=== PATIENT | female | born 1960 | race Caucasian/White ===

== ENCOUNTER 2020-01-13 08:35 | Observation (INO) | payer OTHER ==
--- NOTE | 2020-01-13 20:21 | History and Physical Report ---
History of Present Illness Chief complaint: She passed out History of present illness: 59 YO Female with unobtainable past medical history presents to ED for evaluation. Patient is lethargic the time of my evaluation is unable to provide history. Patient history as per ED staff. Patient staff reports that patient e xperienced a syncopal episode today and was subsequently transported to [facility] for further care and evaluation. Patient seen and evaluated in the emergency department. Lab and imaging studies reviewed. Patient found to have symptoms consistent with metabolic encephalopathy, as well as syncope and collapse. Patient placed in observation status and admitted to medical floor and placed on remote telemetry monitoring. No reports of fever, chills, chest pain, palpitation, productive cough, skin rash, recent ill contacts, prolonged travel/immobility, unilateral leg swelling, calf pain, recent ill contacts, or known exposure to COVID-19. No medication listed at time of admission for reconciliation. No prior admission for review. Advanced care planning conducted in ED. Past History Past Medical History: other (Unable to obtain) Past Surgical History: No surgical history, Other (Reviewed) Social history: Family history: no significant family history (Reviewed) Medications and Allergies Allergies Allergy/AdvReac Type Severity Reaction Status Date / Time No Known Allergies Allergy Verified 01/13/20 21:27 Review of Systems ROS unobtainable: due to mental status Exam - Constitutional General appearance: Present: mild distress - EENT Eyes: Present: PERRL ENT: hearing intact, clear oral mucosa - Neck Neck: Present: supple, normal ROM - Respiratory Respiratory effort: normal Respiratory: bilateral: CTA - Cardiovascular Heart Sounds: Present: S1 & S2. Absent: rub, click - Extremities Extremities: pulses symmetrical, No edema Peripheral Pulses: within normal limits - Abdominal General gastrointestinal: Present: soft, non-tender, non-distended, normal bowel sounds Female genitourinary: Present: normal - Integumentary Integumentary: Present: clear, warm, dry - Musculoskeletal Musculoskeletal: gait normal, strength equal bilaterally - Psychiatric Psychiatric: appropriate mood/affect, intact judgment & insight - Neurologic Neurologic: CNII-XII intact, moves all extremities Assessment and Plan - Patient Problems (1) Metabolic encephalopathy Current Visit: Yes Status: Acute Plan to address problem: CT head, neuro check, seizure precaution, aspiration precautions, fall precautions, BMP, supportive care. (2) Syncope and collapse Current Visit: Yes Status: Acute Plan to address problem: Neuro check, seizure precautions, supportive care. Remote telemetry monitoring. (3) DVT prophylaxis Current Visit: Yes Status: Acute Plan to address problem: SCD to bilateral lower extremities while in bed
[2020-01-13] MEDS ORDERED: ACETAMINOPHEN 325 MG TAB PO PRN (20:59)
[2020-01-13] MEDS ORDERED: ONDANSETRON 4 MG/2 ML INJ IV PRN (20:59)
[2020-01-14 06:06] LABS: Alanine Aminotransferase 13 units/L (7-56); Albumin 4.1 g/dL (3.9-5); Blood Urea Nitrogen 16 mg/dL (7-17); Calcium 9.2 mg/dL (8.4-10.2); Hemolysis Index 4
[2020-01-14 06:11] LABS: BUN/Creatinine Ratio 27
[2020-01-14 11:25] LABS: Basophils # (Auto) 0.1 K/mm3 (0.0-0.1); Eosinophils # (Auto) 0.1 K/mm3 (0.0-0.4); Hematocrit 44.8 % (30.3-42.9); Hemoglobin 14.9 gm/dl (10.1-14.3); Lymphocytes # (Auto) 1.2 K/mm3 (1.2-5.4); Mean Corpuscular HGB Conc 33 % (30-34); Mean Corpuscular Volume 97 fl (79-97); Monocytes # (Auto) 0.3 K/mm3 (0.0-0.8); Monocytes % (Auto) 6.3 % (0.0-7.3); Platelet Count 227 K/mm3 (140-440); Red Blood Count 4.63 M/mm3 (3.65-5.03); Red Cell Distribution Width 14.1 % (13.2-15.2)
[2020-01-14] MEDS ORDERED: FLU VACC QUAD 2020-2021 (6 months +)/PF 60 0.5 ML SYRINGE IM ONE (12:00)
--- NOTE | 2020-01-14 12:28 | Cat Scan Report ---
CT HEAD WITHOUT CONTRAST INDICATION / CLINICAL INFORMATION: syncope. TECHNIQUE: Axial imaging performed from the skull apex through the skull base without the use of cont rast. Sagittal and coronal reformatted images. All CT scans at this location are performed using CT dose reduction for ALARA by means of automated exposure control. COMPARISON: 01/13/2020 FINDINGS: CEREBRAL PARENCHYMA: No significant abnormality. No acute territorial infarct. HEMORRHAGE: None. EXTRA-AXIAL SPACES: Normal in size and morphology for the patient's age. VENTRICULAR SYSTEM: Normal in size and morphology for the patient's age. MIDLINE SHIFT OR HERNIATION: None. CEREBELLUM / BRAINSTEM: No significant abnormality. CALVARIUM: No significant abnormality. ORBITS: Normal as visualized. PARANASAL SINUSES / MASTOID AIR CELLS: Normal as visualized. SOFT TISSUES of HEAD: No significant abnormality. ADDITIONAL FINDINGS: None. IMPRESSION: Cranial CT scan within normal limits. No acute change since yesterday's exam. Signer Name: Joey Vera Jr, MD Signed: 01/14/2020 12:23 PM Workstation Name: [id number]
--- NOTE | 2020-01-14 14:02 | Vascular Lab Report ---
"DUPLEX DOPPLER ULTRASOUND CAROTID, BILATERAL INDICATION: syncope. COMPARISON: None available. FINDINGS: RIGHT CAROTID: No significant atherosclerotic plaque. CCA velocity: 75 cm/sec. ICA peak systolic velocity: 105 cm/sec. ICA/CCA PSV Ratio: 1.4. Right Vertebral Artery: Antegrade flow. LEFT CAROTID: No significant atherosclerotic plaque. CCA velocity: 103 cm/sec. ICA peak systolic velocity: 99 cm/sec. ICA/CCA PSV Ratio: 1.0. Left Vertebral Artery: Antegrade flow. IMPRESSION: 1. Right Internal Carotid Artery: Less than 50% diameter stenosis. 2. Left Internal Carotid Artery: Less than 50% diameter stenosis. Velocity criteria are extrapolated from diameter data as defined by the Society of Radiologists in Ul trasound Consensus Conference, Radiology 2003; 229;340-346. Degree of || ICA PSV || Plaque || ICA/CCA Stenosis (%) || (cm/sec) || estimate (%) || PSV Ratio - Normal...............<125..............None.................<2.0 - <50....................<125..............<50....................<2.0 - 50-69................125-230.........>50....................2.0-4.0 - >70 but <100....>230..............>50....................>4.0 - Near...................High, low, .....visible................variable occlusion or none - Total...................None.............visible;................N/A occlusion no lumen Signer Name: Kareem Mackay MD Signed: 01/14/2020 1:57 PM Workstation Name: [id number]"
--- NOTE | 2020-01-14 16:26 | Cat Scan Report ---
CT:HEAD W/O INDICATION / CLINICAL INFORMATION: 59 years Female; headache. TECHNIQUE: Routine CT head without contrast. All CT scans at this location are performed using CT dos e reduction for ALARA by means of automated exposure control. COMPARISON: None. FINDINGS: BRAIN / INTRACRANIAL CONTENTS: The brain appears to demonstrate appropriate attenuation for age. The ventricular system is within normal limits in size and configuration. There is no CT evidence of acut e intracranial hemorrhage or significant mass effect. ORBITS: No significant abnormality of visualized orbits. SINUSES / MASTOIDS: No significant abnormality in the visualized paranasal sinuses or mastoid air ann ls. CRANIOCERVICAL JUNCTION: No significant abnormality. ADDITIONAL FINDINGS: This mild relative prominence of the CSF attenuation along the posterior right c erebellum indicative of incidental arachnoid cyst. IMPRESSION: 1. There is no CT evidence of acute intracranial process. Signer Name: Tyrell Diop MD Signed: 01/13/2020 7:27 PM Workstation Name: [id number]
--- NOTE | 2020-01-14 17:06 | Consultation ---
History of Present Illness Consult date: 01/14/20 Consult reason: syncope History of present illness: Patient is a 59-year-old woman who presented to the hospital with syncope. She describes being on the toilet commode at home, when she suddenly felt lightheaded and apparently had a brief syncope while still sitting on the commode. She was subsequently aroused by her significant other, reports no chest pain, no shortness of breath but had profuse diaphoresis. They subsequently reported to the [facility] from where they were referred to the emergency room. Patient was seen in the emergency room and referred for admission, cardiac consultation was requested. Patient is currently comfortable alert and oriented, no cardiac complaints. ECG on presentation was a sinus bradycardia at 56, otherwise nonspecific ST and T wave changes. No acute ischemia or infarction on EKG. cardiac troponin levels were not measured and are not available for review. The patient denies any prior cardiac history. Past History Past Medical History: other (Unable to obtain) Past Surgical History: No surgical history, Other (Reviewed) Social history: Family history: no significant family history (Reviewed) Medications and Allergies Allergies Allergy/AdvReac Type Severity Reaction Status Date / Time No Known Allergies Allergy Verified 01/13/20 21:27 Home Medications Medication Instructions Recorded Confirmed Last Taken Type No Known Home Medications [No 01/14/20 01/14/20 Unknown History Reported Home Medications] Active Meds: Active Medications Acetaminophen (Tylenol) 650 mg PO Q4H PRN PRN Reason: Pain MILD(1-3)/Fever >100.5/AVILA Ondansetron HCl (Zofran) 4 mg IV Q8H PRN PRN Reason: Nausea And Vomiting Sodium Chloride (Sodium Chloride Flush Syringe 10 Ml) 10 ml IV BID ADARSH Last Admin: 01/13/20 23:08 Dose: 10 ml Documented by: Sodium Chloride (Sodium Chloride Flush Syringe 10 Ml) 10 ml IV PRN PRN PRN Reason: LINE FLUSH Review of Systems Cardiovascular: syncope, no chest pain, no orthopnea, no palpitations, no rapid/irregular heart beat, no edema, no lightheadedness, no shortness of breath Physical Examination Vital Signs Pulse Resp BP Pulse Ox 63 16 119/64 99 01/13/20 21:30 01/13/20 21:30 01/13/20 21:30 10/27/20 21:30 General appearance: no acute distress HEENT: Positive: PERRL Neck: Positive: neck supple Cardiac: Positive: Reg Rate and Rhythm Lungs: Positive: clear to auscultation Neuro: Positive: Grossly Intact Abdomen: Positive: Soft Female genitourinary: deferred Skin: Positive: Clear Extremities: Absent: edema Results 01/14/20 10:38 01/14/20 05:00 Cardiac Enzymes 01/14/20 Range/Units 05:00 AST 22 (5-40) units/L CBC 01/14/20 Range/Units 10:38 WBC 5.5 (4.5-11.0) K/mm3 RBC 4.63 (3.65-5.03) M/mm3 Hgb 14.9 H (10.1-14.3) gm/dl Hct 44.8 H (30.3-42.9) % Plt Count 227 (140-440) K/mm3 Lymph # (Auto) 1.2 (1.2-5.4) K/mm3 Eddy # (Auto) 0.3 (0.0-0.8) K/mm3 Eos # (Auto) 0.1 (0.0-0.4) K/mm3 Baso # (Auto) 0.1 (0.0-0.1) K/mm3 Comprehensive Metabolic Panel 01/14/20 Range/Units 05:00 Sodium 142 (137-145) mmol/L Potassium 3.7 (3.6-5.0) mmol/L Chloride 103.3 (98-107) mmol/L Carbon Dioxide 29 (22-30) mmol/L BUN 16 (7-17) mg/dL Creatinine 0.6 (0.6-1.2) mg/dL Glucose 78 (65-100) mg/dL Calcium 9.2 (8.4-10.2) mg/dL AST 22 (5-40) units/L ALT 13 (7-56) units/L Alkaline Phosphatase 93 (35-129) units/L Total Protein 6.7 (6.3-8.2) g/dL Albumin 4.1 (3.9-5) g/dL EKG interpretations - Telemetry EKG Rhythm: Sinus Bradycardia - EKG Sinus rhythms and dysrhythmias: sinus rhythm Assessment and Plan - Patient Problems (1) Syncope and collapse Current Visit: Yes Status: Acute Plan to address problem: 59-year-old woman who suffered transient syncope associated with profuse diaphoresis, while on the toilet commode. Historically it would appear to be a vasovagal syncope. We will order two serial troponin levels, echocardiogram and a predischarge Lexiscan thallium stress test.
--- NOTE | 2020-01-14 18:29 | Progress Note ---
Assessment and Plan - Patient Problems (1) Syncope and collapse Current Visit: Yes Status: Acute Plan to address problem: Patient presented with a syncopal episode while using the commode 01/12 CT head show no evidence of acute intracranial process 01/13 CT head within normal limits. No acute change since yesterday's exam. 01/13 Bilateral carotid duplex ultrasound shows less than 50% diameter stenosis in the R ICA and LICA Cardiology was consulted for persistent sinus bradycardia and a 4 beat run of V. tach on 01/13 2048 Cardiology ordered 2 0 troponin levels, echocardiogram and a predischarge Lexiscan thallium stress test Patient showed me documentation of a ZAHRA that was obtained in 2014 which showed EF of 55%, mitral valve regurgitation and trace tricuspid regurgitation; she was seen by Dr. Osborne at [facility] (2) DVT prophylaxis Current Visit: Yes Status: Acute Plan to address problem: SCDs to bilateral lower extremities while in bed Lovenox subcu History Interval history: This is a 59-year-old female who is mainly Georgian speaking with no past medical history who presented to the emergency department on 01/12 with a syncopal episode. Patient describes being on the commode at home when she suddenly felt lightheaded and her significant other heard a loud noise. When he found her on the commode she had profuse diaphoresis and he aroused her. On the time of my exam patient is awake, alert, oriented x3. Overnight patient had sinus bradycardia therefore cardiology was consulted. Patient had an echocardiogram 2014 showed EF of 55% with mitral valve regurgitation and trace tricuspid valve regurgitation. I spoke to the patient significant other and her at bedside and he threatened to have her leave AMA. I spent approximately 20 minutes at bedside explaining that work-up is still in progress for her syncopal episode and cardiology was consulted. After long conversation he agreed to have her stay however he request the attending physician speak to him tomorrow during patient visiting hours. Cardiac ordered serial troponins and an echocardiogram and plans to obtain a complete discharge Lexiscan thallium stress test Hospitalist Physical - Constitutional Vitals: Temp Pulse Resp BP Pulse Ox 97.9 F 57 L 18 147/84 97 01/14/20 15:48 01/14/20 15:48 01/14/20 15:48 01/14/20 15:48 01/14/20 15:48 General appearance: Present: no acute distress - EENT Eyes: Present: PERRL, EOM intact ENT: hearing intact, clear oral mucosa, dentition normal - Neck Neck: Present: supple, normal ROM - Respiratory Respiratory effort: normal Respiratory: bilateral: CTA - Cardiovascular Rhythm: regular Heart Sounds: Present: S1 & S2. Absent: systolic murmur, diastolic murmur - Extremities Extremities: no ischemia, pulses intact, pulses symmetrical, No edema, normal temperature, normal color, Full ROM Peripheral Pulses: within normal limits - Abdominal General gastrointestinal: soft, non-tender, normal bowel sounds - Integumentary Integumentary: Present: clear, warm, dry - Psychiatric Psychiatric: appropriate mood/affect, cooperative - Neurologic Neurologic: CNII-XII intact, no focal deficits, no moves all extremities - Allied Health Allied health notes reviewed: nursing Results - Labs CBC & Chem 7: 01/14/20 10:38 01/14/20 05:00 Labs: Laboratory Last Values WBC 5.5 K/mm3 (4.5-11.0) 01/14/20 10:38 RBC 4.63 M/mm3 (3.65-5.03) 01/14/20 10:38 Hgb 14.9 gm/dl (10.1-14.3) H 01/14/20 10:38 Hct 44.8 % (30.3-42.9) H 01/14/20 10:38 MCV 97 fl (79-97) 01/14/20 10:38 MCH 32 pg (28-32) 01/14/20 10:38 MCHC 33 % (30-34) 01/14/20 10:38 RDW 14.1 % (13.2-15.2) 01/14/20 10:38 Plt Count 227 K/mm3 (140-440) 01/14/20 10:38 Lymph % (Auto) 22.0 % (13.4-35.0) 01/14/20 10:38 [place] % (Auto) 6.3 % (0.0-7.3) 01/14/20 10:38 Eos % (Auto) 1.0 % (0.0-4.3) 01/14/20 10:38 Baso % (Auto) 1.0 % (0.0-1.8) 01/14/20 10:38 Lymph # (Auto) 1.2 K/mm3 (1.2-5.4) 01/14/20 10:38 [place] # (Auto) 0.3 K/mm3 (0.0-0.8) 01/14/20 10:38 Eos # (Auto) 0.1 K/mm3 (0.0-0.4) 01/14/20 10:38 Baso # (Auto) 0.1 K/mm3 (0.0-0.1) 01/14/20 10:38 Seg Neutrophils % 69.7 % (40.0-70.0) 01/14/20 10:38 Seg Neutrophils # 3.8 K/mm3 (1.8-7.7) 01/14/20 10:38 Sodium 142 mmol/L (137-145) 01/14/20 05:00 Potassium 3.7 mmol/L (3.6-5.0) 01/14/20 05:00 Chloride 103.3 mmol/L (98-107) 01/14/20 05:00 Carbon Dioxide 29 mmol/L (22-30) 01/14/20 05:00 Anion Gap 13 mmol/L 01/14/20 05:00 BUN 16 mg/dL (7-17) 01/14/20 05:00 Creatinine 0.6 mg/dL (0.6-1.2) 01/14/20 05:00 Estimated GFR > 60 ml/min 01/14/20 05:00 BUN/Creatinine Ratio 27 % 01/14/20 05:00 Glucose 78 mg/dL (65-100) 01/14/20 05:00 Calcium 9.2 mg/dL (8.4-10.2) 01/14/20 05:00 Total Bilirubin 1.00 mg/dL (0.1-1.2) 01/14/20 05:00 AST 22 units/L (5-40) 01/14/20 05:00 ALT 13 units/L (7-56) 01/14/20 05:00 Alkaline Phosphatase 93 units/L (35-129) 01/14/20 05:00 Total Protein 6.7 g/dL (6.3-8.2) 01/14/20 05:00 Albumin 4.1 g/dL (3.9-5) 01/14/20 05:00 Albumin/Globulin Ratio 1.6 % 01/14/20 05:00 Sparks/IV: Voiding Method Toilet IV Catheter Type [Left INT / Saline Lock Antecubital] Active Medications - Current Medications Current Medications: Generic Name Dose Route Start Last Admin Trade Name Freq PRN Reason Stop Dose Admin Acetaminophen 650 mg 01/13/20 20:59 Tylenol PO Q4H PRN Pain MILD(1-3)/Fever >100.5/AVILA Ondansetron HCl 4 mg 01/13/20 20:59 Zofran IV Q8H PRN Nausea And Vomiting Sodium Chloride 10 ml 01/13/20 22:00 01/14/20 10:23 Sodium Chloride Flush Syringe 10 Ml IV 10 ml BID ADARSH Administration Sodium Chloride 10 ml 01/13/20 20:59 Sodium Chloride Flush Syringe 10 Ml IV PRN PRN LINE FLUSH
[2020-01-14] MEDS ORDERED: ENOXAPARIN 30 MG/0.3 ML INJ SUB-Q SCH (19:00)
[2020-01-14] MEDS: ENOXAPARIN 40 MG/0.4 ML INJ SUB-Q SCH (21:32)
[2020-01-15] MEDS ORDERED: REGADENOSON 0.4 MG/5 ML INJ IV ONE ×2 (07:51→07:52)
[2020-01-15 10:57] LABS: Alanine Aminotransferase 17 units/L (7-56); BUN/Creatinine Ratio 20; Blood Urea Nitrogen 14 mg/dL (7-17); Calcium 10.2 mg/dL (8.4-10.2)
[2020-01-15 10:58] LABS: Albumin 4.7 g/dL (3.9-5); Hemolysis Index 4
--- NOTE | 2020-01-15 11:10 | Treadmill Report ---
THALLIUM STRESS TEST LEFT VENTRICLE: Left ventricular chamber size is within normal spread. Perfusion study demonstrates homogeneous uptake of the tracer in all segments, no defects identified. Gated analysis demonstrates normal left ventricular systolic function, ejection fraction 71%. CONCLUSION: Normal myocardial perfusion study. JOB# [id number] CA/NTS
[2020-01-15 11:21] VITALS: BP 132/78
[2020-01-15] MEDS: ENOXAPARIN 40 MG/0.4 ML INJ SUB-Q SCH (11:58)
[2020-01-15] MEDS ORDERED: FLU VACC QUAD 2020-2021 (6 months +)/PF 60 0.5 ML SYRINGE IM ONE (12:00)
--- NOTE | 2020-01-15 14:28 | Discharge Summary ---
Providers - Providers Date of Admission: 01/13/20 20:59 Attending physician: JAY CASANOVA 01/14/20 12:36 Consult to Physician [CONS] Routine Comment: Consulting Provider: BOGDAN CANDELARIA Physician Instructions: Reason For Exam: SB, possible syncope, 4 beat vtach Primary care physician: [facility] Hospitalization Pertinent studies: 01/12 CT head/brain without contrast shows no acute intracranial process 01/13 bilateral carotid duplex ultrasound shows a R ICA less than 50% diameter stenosis, LICA less than 50% diameter stenosis 01/14 exercise stress test shows EF of 71%, normal myocardial perfusion study Hospital course: This is a 59-year-old female who is mainly Cypriot speaking with no past medical history who presented to the emergency department on 01/12 with a syncopal episode. Patient describes being on the commode at home when she suddenly felt lightheaded and her significant other heard a loud noise. When he found her on the commode she had profuse diaphoresis and he aroused her. On the time of my exam patient is awake, alert, oriented x3. Overnight patient had sinus bradycardia therefore cardiology was consulted. Patient had an echocardiogram report from 2014 showed EF of 55% with mitral valve regurgitation and trace tricuspid valve regurgitation. Serial cardiac enzymes were less than 0.01) and patient underwent an exercise stress test on 01/14 which showed EF of 71% with a normal myocardial perfusion study. Patient will need to follow-up with a primary care physician within 1 to 2 weeks of discharge. Patient may follow-up with cardiology within 1 to 2 weeks of discharge if needed. - Patient Problems (1) Autonomic Imbalance Current Visit: Yes Status: Acute Plan to address problem: Patient presented with a syncopal episode while using the commode 01/12 CT head/brain without contrast shows no acute intracranial process 01/13 Bilateral carotid duplex ultrasound shows less than 50% diameter stenosis in the R ICA and LICA Cardiology was consulted for persistent sinus bradycardia and a 4 beat run of V. tach on 01/13 2048 Cardiology ordered 2xtroponin levels (which were both less than 0.010), echocardiogram and a predischarge Lexiscan thallium stress test Patient presented with documentation of a ZAHRA that was obtained in 2014 which showed EF of 55%, mitral valve regurgitation and trace tricuspid regurgitation; she was seen by Dr. Candelaria at [facility] 01/14 exercise stress test shows EF of 71%, normal myocardial perfusion study Disposition: DC-01 TO HOME OR SELFCARE Time spent for discharge: 35 Core Measure Documentation - Palliative Care Palliative Care/ Comfort Measures: Not Applicable - Core Measures Any of the following diagnoses?: none Exam - Constitutional Vitals: Temp Pulse Resp BP Pulse Ox 97.6 F 80 18 132/78 99 01/15/20 13:47 01/15/20 13:47 01/15/20 13:47 01/15/20 13:47 01/15/20 13:47 General appearance: Present: no acute distress - EENT Eyes: Present: PERRL, EOM intact ENT: hearing intact, clear oral mucosa, poor dentition - Neck Neck: Present: supple, normal ROM - Respiratory Respiratory effort: normal Respiratory: bilateral: CTA - Cardiovascular Rhythm: regular Heart Sounds: Present: S1 & S2. Absent: systolic murmur, diastolic murmur - Extremities Extremities: no ischemia, pulses intact, pulses symmetrical, No edema, normal temperature, normal color, Full ROM Peripheral Pulses: within normal limits - Abdominal General gastrointestinal: Present: soft, non-tender, non-distended, normal bowel sounds - Integumentary Integumentary: Present: clear, warm, dry - Musculoskeletal Musculoskeletal: strength equal bilaterally - Psychiatric Psychiatric: cooperative - Neurologic Neurologic: CNII-XII intact, no focal deficits, moves all extremities - Allied Health Allied health notes reviewed: nursing Plan Activity: advance as tolerated Diet: regular Additional Instructions: Present to nearest emergency department or contact your primary care physician if you experience worsening symptoms. You may follow-up with cardiology if needed outpatient. Follow up with: YAIR MCMILLAN MD [Primary Care Provider] - 7 Days LEELEE VALDES MD [Staff Physician] - 7 Days
== END 2020-01-15 15:28 | disposition home or self-care (01) ==
LOC: ED 08:35 → 4A 20:59
PROVIDERS: ADMIT Internal Medicine; ATTEND Internal Medicine
DX: G93.41 Metabolic encephalopathy (principal); G90.8 Other disorders of autonomic nervous system; R55 Syncope and collapse; Z23 Encounter for immunization
CPT/HCPCS: 36415; 70450; 78452; 80053; 84484; 85025; 93005; 93017; 93306; 93880; 96372; A9502; G0378; J1650; J2785; 80320; 90686; G0480